=== PATIENT | female | born 1935 | race Two or more races ===

== ENCOUNTER 2019-04-24 20:45 | Inpatient (IN) | payer MEDICARE, OTHER ==
[~2019-04-24] VITALS: Ht 144.8 cm; Wt 73.5 kg
[2019-04-25 01:00] VITALS: BP 139/82
[2019-04-25] MEDS ORDERED: ONDANSETRON HCL/PF 4 MG/2 ML VIAL IVP PRN (01:30)
[2019-04-25] MEDS ORDERED: NITROGLYCERIN 0.4 MG/TAB BOTTLE SL PRN (01:30)
[2019-04-25] MEDS ORDERED: Z GUARD REMEDY 2 OZ OINT TP PRN (01:30)
[2019-04-25] MEDS ORDERED: ZOLPIDEM TARTRATE 5 MG TABLET PO PRN (01:30)
[2019-04-25] MEDS ORDERED: ACETAMINOPHEN 325 MG TABLET PO PRN (01:30)
[2019-04-25] MEDS ORDERED: MAGNESIUM HYDROXIDE 30 ML UDC PO PRN (01:30)
[2019-04-25] MEDS ORDERED: MAG HYDROX/AL HYDROX/SIMETH 30 ML UDC PO PRN (01:30)
[2019-04-25] MEDS ORDERED: HYDROCODONE/APAP 5/325MG 1 EACH TABLET PO PRN (01:30)
[2019-04-25] MEDS ORDERED: MORPHINE SULFATE INJ 2 MG/ML DISP.SYRIN IV PRN (01:30)
[2019-04-25 01:52] LABS: BASOPHILS # (AUTO) 0.2 /CMM (0.0-0.2); BASOPHILS % (AUTO) 2.8 % (0.0-2.0); EOSINOPHILS % (AUTO) 0.3 % (0.0-6.0); HEMATOCRIT 38 % (33-45); HEMOGLOBIN 12.7 g/dL (11.5-14.8); LYMPHOCYTES % (AUTO) 28.9 % (20.0-44.0); MEAN CORPUSCULAR HGB CONC 33 g/dl (31.0-36.0); MEAN CORPUSCULAR VOLUME 97 fL (82-100); MONOCYTES # (AUTO) 0.6 /CMM (0.1-1.30); MONOCYTES % (AUTO) 8.6 % (2.0-12.0); NEUTROPHILS # (AUTO) 4.1 /CMM (1.8-8.9); NEUTROPHILS % (AUTO) 59.4 % (43.0-81.0); PLATELET COUNT (AUTO) 135 /CMM (150-450); RED BLOOD CELL COUNT(AUTO) 3.96 MIL/uL (4.0-5.2); WHITE BLOOD COUNT (AUTO) 6.9 K/uL (4.3-11.0)
[2019-04-25] MEDS ORDERED: CHOL20004 PO (01:53)
[2019-04-25] MEDS ORDERED: METO-358 PO (01:53)
[2019-04-25] MEDS ORDERED: ESOM40CA PO (01:53)
[2019-04-25] MEDS ORDERED: FOLI1TAB16 PO (01:53)
[2019-04-25] MEDS ORDERED: METH2.5T PO (01:53)
[2019-04-25] MEDS ORDERED: CALC-1104 PO (01:53)
[2019-04-25] MEDS ORDERED: EZET10TA14 PO (01:53)
[2019-04-25] MEDS ORDERED: ICOS1CAP PO (01:53)
[2019-04-25] MEDS ORDERED: APIX2.5T PO (01:53)
[2019-04-25] MEDS ORDERED: LORA1TAB PO (01:53)
[2019-04-25] MEDS ORDERED: LEVO100T9 PO (01:53)
[2019-04-25] MEDS ORDERED: LOSA100T31 PO (01:53)
[2019-04-25] MEDS ORDERED: MULT-1168 PO (01:53)
[2019-04-25] MEDS ORDERED: AMLO2.5T4 PO (01:53)
[2019-04-25] MEDS ORDERED: ESCI20TA PO (01:53)
[2019-04-25] MEDS ORDERED: FERR325T23 PO (01:53)
[2019-04-25] MEDS ORDERED: INFL100V IV (01:53)
[2019-04-25] MEDS ORDERED: AMIO200T4 PO (01:53)
[2019-04-25] MEDS ORDERED: DONE5TAB34 PO (01:53)
[2019-04-25 02:11] LABS: CHOLESTEROL 95 mg/dL (<200); HDL CHOLESTEROL 45 mg/dL (40-60); LDL 40 mg/dL (0-99); THYROID STIMULATING HORMONE 4.152 uIU/mL (0.358-3.74); TRIGLYCERIDES 100 mg/dL (30-150)
[2019-04-25 02:22] LABS: ALANINE AMINOTRANSFERASE 62 U/L (12-78); ALBUMIN 3.3 g/dL (3.4-5.0); ALKALINE PHOSPHATASE 56 U/L (46-116); ASPARTATE AMINOTRANSFERASE 40 U/L (15-37); B-TYPE NATRIURETIC PEPTIDE 7516 PG/ML (0-125); BILIRUBIN,TOTAL 0.5 mg/dL (0.2-1.0); CALCIUM, SERUM 8.5 mg/dL (8.5-10.1); CARBON DIOXIDE 25 mmol/L (21-32); CHLORIDE 106 mmol/L (98-107); CREATININE 1.2 mg/dL (0.6-1.3); GLUCOSE 119 mg/dL (74-106); PHOSPHORUS 4.8 mg/dL (2.5-4.9); POTASSIUM 4.2 mmol/L (3.5-5.1); SODIUM SERUM 141 mmol/L (136-145); TOTAL PROTEIN, SERUM 6.4 g/dL (6.4-8.2); UREA NITROGEN, BLOOD 33 mg/dL (7-18)
--- NOTE | 2019-04-25 02:26 | NUR ---
RN NOTE RECEIVED PATIENT FROM [facility], TRANSFERRED VIA GURNEY, ABLE TO AMBULATE WITH ASSIST, ALERT/ORIENTED X 2, PER DAUGHTER PATIENT HAS PERIODS OF CONFUSION AT HOME, DC CHEST PAIN, ON ROOM AIR SO2 96%, NO PAIN OR DISCOMFORT AT THIS TIME, SKIN IS INTACT, RIGHT AC 22 GAUGE, NO S/S OF INFECTION/INFILTRATION NOTED, NO CHEST PAIN OR DISCOMFORT NOTED AT THIS TIME, WILL CONTINUE TO MONITOR PATIENT
[2019-04-25 04:00] VITALS: BP 156/83
--- NOTE | 2019-04-25 07:45 | NUR ---
RN NOTE: PATIENT RECEIVED ALERT AWAKE ORIENTED X 3 WITH PERIODS OF FORGETFULNESS. ON ROOM AIR, NO BREATHING DISTRESS NOTED. DENIES CHEST PAIN & DISCOMFORT. ON TELE MONITOR V-PACING. SAFETY MEASURES OBSERVED. DAUGHTER AT BED SIDE. ENCOURAGE TO USE CALL LIGHT FOR ASSISTANCE. CONTINUE WITH PLAN OF CARE.
[2019-04-25 08:00] VITALS: BP 146/83
[2019-04-25] MEDS: ASPIRIN EC 81 MG TABLET.DR PO SCH (09:02)
--- NOTE | 2019-04-25 11:00 | NUR ---
RN NOTE: MED RECON NOTIFIED JAJA Tapia NP MADE AWARE ABOUT MED RECON NEEDS TO BE DONE, PER JAJA WILL REVIEW IT.
[2019-04-25 12:00] VITALS: BP 130/76
[2019-04-25 16:00] VITALS: BP 134/77
--- NOTE | 2019-04-25 17:00 | NUR ---
RN NOTE; DAUGHTER AT BEDSIDE REQUESTED TO SEE PRIMARY DOCTOR & HOME MEDICATION ADMINISTRATION. JAJA LOVE MADE AWARE.
--- NOTE | 2019-04-25 18:39 | NUR ---
RN NOTE: PATIENT REMAINS ALERT AWAKE ORIENTED X 4. ON ROOM AIR, NO BREATHING DISTRESS NOTED. DENIES CHEST PAIN & DISCOMFORT. ON TELE MONITOR A-FIB WITH V- PACING. NO ANY SIGNIFICANT CHANGES NOTED DURING SHIFT. ECHO WAS DONE TODAY. JAJA LOVE AT BEDSIDE, TALKING TO PATIENT & DAUGHTER.
--- NOTE | 2019-04-25 19:06 | NUR ---
RN NOTE RECEIVED PATIENT IN THE BED, ALERT/ORIENTED X 3, NO CHEST PAIN NOTED, PER NURSE LISET AWAITING FOR MEDICATION RECONCILIATION FROM JAJA ZAVALA PATTERN CHANGER AND REPAIRER, DAUGHTER IS BY BEDSIDE, WILL CONTINUE TO MONITOR
--- NOTE | 2019-04-25 19:30 | NUR ---
RN NOTE PAGED DOCTOR RASHID SR REGARDING MEDICATION RECON., PER DOCTOR RASHID SR HE WILL DO MEDICATION RECON. SOON HE HAS TIME Addendum: 04/25/19 at 2028 by PRINCESS WALKER RN UPHOLSTERY HANDLER MARTHA IS AWARE
[2019-04-25 20:00] VITALS: BP 151/72
--- NOTE | 2019-04-25 22:11 | NUR ---
RN NOTE MEDICATION RECONCILIATION WAS DONE BY YORDAN ZAVALA IPHONE DEVELOPER, NOTIFIED DAUGHTER, CHARGE NURSE NARCISO IS AWARE
[2019-04-26] VITALS: BP 122/72
[2019-04-26 04:00] VITALS: BP 154/81
[2019-04-26 05:58] LABS: BASOPHILS % (AUTO) 0.7 % (0.0-2.0); EOSINOPHILS % (AUTO) 1.1 % (0.0-6.0); HEMATOCRIT 36 % (33-45); HEMOGLOBIN 11.8 g/dL (11.5-14.8); LYMPHOCYTES # (AUTO) 2.2 /CMM (0.8-4.8); LYMPHOCYTES % (AUTO) 39.6 % (20.0-44.0); MEAN CORPUSCULAR HGB CONC 33 g/dl (31.0-36.0); MEAN CORPUSCULAR VOLUME 98 fL (82-100); MONOCYTES # (AUTO) 0.5 /CMM (0.1-1.30); MONOCYTES % (AUTO) 8.7 % (2.0-12.0); NEUTROPHILS # (AUTO) 2.8 /CMM (1.8-8.9); NEUTROPHILS % (AUTO) 49.9 % (43.0-81.0); PLATELET COUNT (AUTO) 126 /CMM (150-450); RED BLOOD CELL COUNT(AUTO) 3.65 MIL/uL (4.0-5.2); WHITE BLOOD COUNT (AUTO) 5.7 K/uL (4.3-11.0)
[2019-04-26 06:15] LABS: CALCIUM, SERUM 7.8 mg/dL (8.5-10.1); CARBON DIOXIDE 25 mmol/L (21-32); CHLORIDE 108 mmol/L (98-107); CREATININE 0.9 mg/dL (0.6-1.3); GLUCOSE 138 mg/dL (74-106); MAGNESIUM 1.8 mg/dL (1.8-2.4); PHOSPHORUS 3.8 mg/dL (2.5-4.9); POTASSIUM 3.7 mmol/L (3.5-5.1); SODIUM SERUM 143 mmol/L (136-145); UREA NITROGEN, BLOOD 23 mg/dL (7-18)
--- NOTE | 2019-04-26 07:45 | NUR ---
ENVIRONMENTAL MONITORING SPECIALIST OPENING NOTE RECEIVED PT SITTING UP IN CHAIR WITH FAMILY MEMBER AT THE BEDSIDE. PT IS ALERT AND ORIENTED X4, PRIMARILY UZBE[place] SPEAKING. DENIES CHEST PAIN, SOB, N/V, BREATHING IS EVEN AND UNLABORED ON ROOM AIR. PT IS ON TIN CAN LABORER WITH A-FIB, HR 105, PT HAS A PACEMAKER THAT IS NOT FIRING AT THIS TIME AND PENDING CARDIAC CONSULT. LEFT AC #22G IV IS SALINE LOCKED WITHOUT REDNESS OR SWELLING. ALL NEEDS ATTENDED TO. BED IS LOCKED AND IN LOWEST POSITION, SIDE RAILS UP X2, CALL LIGHT AND POSSESSIONS WITHIN REACH.
[2019-04-26 08:00] VITALS: BP 177/88
--- NOTE | 2019-04-26 08:15 | NUR ---
CIVIL ENGINEERING PROJECT MANAGER NOTE SPOKE WITH PERLA IN PHARMACY REGARDING ELIQUIS. PER PERLA SHE DOES NOT KNOW WHY THE MEDICATION HAS BEEN LEFT UNVERIFIED, PER PERLA, VERIFY MEDICATION ORDER WITH FAMILY AND REQUEST THAT THEY BRING THE MEDICATION IN.
--- NOTE | 2019-04-26 08:20 | NUR ---
HEAT TREAT FURNACE OPERATOR NOTE VERIFIED THAT PT TAKES ELIQUIS 2.5MG BID. REQUESTED THAT SOMEONE BRING IN THE MEDICATION FOR ADMINISTRATION. INFORMED JAY IN PHARMACY AND ALSO INFORMED THAT FAMILY WILL BRING THE MEDICATION IN LATER TODAY, AND THAT PT HAS A DOSE DUE THIS AM.
[2019-04-26] MEDS: CHOLECALCIFEROL 1,000 UNIT TABLET (VIT D3) PO SCH ×2 (08:55→17:03)
[2019-04-26] MEDS: MULTIPLE VIT (LYCOPENE/FA/MV,CA,IRON,MIN/LUT)1 TAB PO SCH (08:55)
[2019-04-26] MEDS: ESCITALOPRAM OXALATE (10 MG) 10 MG TABLET PO SCH (08:55)
[2019-04-26] MEDS: FERROUS SULFATE (325 MG) 325 MG/TAB TABLET PO SCH ×2 (08:56→17:03)
[2019-04-26] MEDS: LEVOTHYROXINE SODIUM 100 MCG TABLET PO SCH (08:56)
[2019-04-26] MEDS: DONEPEZIL 5 MG TABLET PO SCH (08:56)
[2019-04-26] MEDS: CALCIUM CARB 250MG /VITAMIN D 1 UDTAB PO SCH ×3 (08:56→17:03)
[2019-04-26] MEDS: METOPROLOL SUCCINATE 50 MG TAB.SR.24H PO SCH (08:57)
[2019-04-26] MEDS: FOLIC ACID 1 MG TABLET PO SCH (08:57)
[2019-04-26] MEDS: LOSARTAN POTASSIUM 50 MG TABLET PO SCH (08:57)
[2019-04-26] MEDS: EZETIMIBE 10 MG TABLET PO SCH (08:59)
[2019-04-26] MEDS: ASPIRIN EC 81 MG TABLET.DR PO SCH (08:59)
[2019-04-26] MEDS ORDERED: Medication Not On Formulary EA (Icosapent Ethyl (Vascepa) 1 GM) PO SCH (09:00)
[2019-04-26] MEDS: AMLODIPINE BESYLATE 2.5 MG TABLET PO SCH (09:00)
[2019-04-26] MEDS ORDERED: LORAZEPAM 1 MG TABLET PO SCH (09:00)
[2019-04-26] MEDS: AMIODARONE HCL 200 MG TABLET PO SCH (09:01)
[2019-04-26] MEDS: PANTOPRAZOLE 40 MG TABLET.DR PO SCH (09:02)
[2019-04-26] MEDS: APIXABAN 2.5 MG TABLET PO SCH ×2 (09:18→17:06)
[2019-04-26 11:03] LABS: APPEARANCE,URINE CLEAR (CLEAR); BILIRUBIN,URINE NEGATIVE (NEGATIVE); BLOOD, URINE 1+ Ery/uL (NEGATIVE); COLOR,URINE YELLOW (YELLOW); KETONES,URINE NEGATIVE (NEGATIVE); LEUKOCYTE ESTERASE ,URINE NEGATIVE (NEGATIVE); NITRITE, URINE NEGATIVE (NEGATIVE); PH,URINE 5.5 (5.0-8.0); PROTEIN,URINE TRACE mg/dl (NEGATIVE); UGLUCOSE NEGATIVE (NEGATIVE); UROBILINOGEN,URINE 0.2 EU/dL (0.2)
[2019-04-26 11:05] LABS: BACTERIA,URINE Few /HPF (None Seen); WBC,URINE 0-2 /HPF (0-3)
--- NOTE | 2019-04-26 11:34 | NUR ---
HOSPITAL CHAPLAIN NOTE SPOKE WITH (BUCKLE STRINGER) REGARDING PT CONSULT. PER HE WILL SEE THE PT SHORTLY AND IS REQUESTING PACEMAKER INTERROGATION AT THIS TIME. WILL INITIATE.
--- NOTE | 2019-04-26 11:39 | NUR ---
FRENCH TUTOR NOTE PUT IN REQUEST WITH WEST FROM [employer] FOR DEVICE INTERROGATION REQUESTED BY RAILROAD CAR REPAIR SUPERVISOR. PHONE NUMBER: [phone]. PER WEST SOMEONE WILL SEE THE PT TODAY.
[2019-04-26 12:00] VITALS: BP 146/83
--- NOTE | 2019-04-26 12:37 | NUR ---
ROUTE CLERK NOTE DR. HANSEN AT THE BEDSIDE FOR PT ASSESSMENT
--- NOTE | 2019-04-26 12:45 | NUR ---
BELT SEWER NOTE BLOGS MANAGER FROM [employer] AT THE BEDSIDE FOR PACEMAKER INTERROGATION.
[2019-04-26] MEDS ORDERED: LOPERAMIDE HCL (2 MG CAP) 2 MG CAPSULE PO PRN (15:00)
[2019-04-26 16:00] VITALS: BP 127/77
--- NOTE | 2019-04-26 16:15 | NUR ---
SIGNAL FITTER NOTE INFORMED BY CHARGE NURSE THAT PT WILL BE TRANSFERRED TO OUTSIDE FACILITY FOR CARDIAC CATH, PENDING AUTHORIZATION.
--- NOTE | 2019-04-26 16:17 | NUR ---
VIDEO POKER FLOORMAN NOTE LEFT AC IV FOUND TO BE LEAKING AND UNABLE TO FLUSH. REMOVED WITH CATHETER TIP INTACT. NEW IV INSERTED AT THE RIGHT AC #18G AND IS PATENT, CLEAN, DRY AND INTACT.
--- NOTE | 2019-04-26 18:11 | NUR ---
FUNDING ANALYST CLOSING NOTE PT SITTING UP IN CHAIR WITH FAMILY MEMBER AT THE BEDSIDE. PT IS ALERT AND ORIENTED X4, PRIMARILY FAROESE SPEAKING. DENIES CHEST PAIN, SOB, N/V, BREATHING IS EVEN AND UNLABORED ON ROOM AIR. PT IS ON INSTRUMENTATION CONTROLS ENGINEER WITH A-FIB AND VENTRICULAR PACING, HR 98. RIGHT AC #18G IV IS SALINE LOCKED WITHOUT REDNESS OR SWELLING. ASSISTED WITH ADLS. PT IS PENDING TRANSFER TO OUTSIDE FACILITY FOR CARDIAC CATH. ALL NEEDS ATTENDED TO. BED IS LOCKED AND IN LOWEST POSITION, SIDE RAILS UP X2, CALL LIGHT AND POSSESSIONS WITHIN REACH. WILL ENDORSE TO TECHNICIAN TERMINAL AND REPEATER NURSE FOR CONTINUITY OF CARE.
--- NOTE | 2019-04-26 19:40 | NUR ---
INJECTION MOLDING OPERATOR NOTES, PATIENT SITTING UP IN CHAIR WITH DAUGHTER AT BEDSIDE, ALERT AND ORIENTED X4, SOMALI SPEAKING, BREATHING IS EVEN AND UNLABORED ON ROOM AIR, WITH O2 SAT LEVEL 96% AT T HIS TIME, DENIES CHEST PAIN OR DISCOMFORT AT THIS TIME, AFIB AND VENTRICULAR PACING, HR 80S, RIGHT AC #18G IV S/L NO ABNORMAL SIGNS NOTED, ALL NEEDS ATTENDED, BED IS LOCKED AND IN LOWEST POSITION, SIDE RAILS UP X2, CALL LIGHT WITHIN REACH, WILL CONTINUE TO MONITOR CLOSELY.
[2019-04-26 20:00] VITALS: BP 143/78
[2019-04-26] MEDS ORDERED: LORAZEPAM 1 MG TABLET PO PRN (22:00)
[2019-04-27] VITALS: BP 140/69
[2019-04-27 04:00] VITALS: BP 143/83
--- NOTE | 2019-04-27 06:33 | NUR ---
BUSINESS MANAGEMENT MANAGER NOTES, PATIENT SLEEPING AT THIS TIME, BUT EASILY AROUSABLE TO TACTILE STIMULI, 2 DAUGHTERS AT BEDSIDE, ALERT AND ORIENTED X4, MOLDOVAN SPEAKING, BREATHING IS EVEN AND UNLABORED ON ROOM AIR, WITH OPTIMAL SATURATION LEVEL, DENIES CHEST PAIN OR DISCOMFORT AT THIS TIME, AFIB CONTROL, HR 80S, RIGHT AC #18G IV S/L NO ABNORMAL SIGNS NOTED, ALL NEEDS ATTENDED, NO SIGNIFICANT CHANGE IN CONDITION, THROUGHPUT THE NIGHT, BED IS LOCKED AND IN LOWEST POSITION, SIDE RAILS UP X2, CALL LIGHT WITHIN REACH, WILL ENDORSE CONTINUITY OF CARTE TO ONCOMING NURSE.
--- NOTE | 2019-04-27 06:59 | NUR ---
RN NOTES, PATIENT ASSESSED BY ACUTE DIALYSIS NURSE BILLIE AT THIS TIME, WITH PLAN TO TRANSFER PATIENT TO [facility] FOR HORTICULTURAL WORKER, WILL ENDORSE CONTINUITY OF CARE AND F/U ONCOMING NURSE.
[2019-04-27 07:51] LABS: HEMATOCRIT 37 % (33-45); HEMOGLOBIN 12.4 g/dL (11.5-14.8); LYMPHOCYTES % (AUTO) 48.1 % (20.0-44.0); MEAN CORPUSCULAR HGB CONC 33 g/dl (31.0-36.0); MEAN CORPUSCULAR VOLUME 97 fL (82-100); MONOCYTES % (AUTO) 10.3 % (2.0-12.0); NEUTROPHILS % (AUTO) 40.5 % (43.0-81.0); PLATELET COUNT (AUTO) 117 /CMM (150-450); RED BLOOD CELL COUNT(AUTO) 3.86 MIL/uL (4.0-5.2); WHITE BLOOD COUNT (AUTO) 6.3 K/uL (4.3-11.0)
[2019-04-27 07:52] LABS: BASOPHILS % (AUTO) 0.4 % (0.0-2.0); EOSINOPHILS % (AUTO) 0.7 % (0.0-6.0); MONOCYTES # (AUTO) 0.6 /CMM (0.1-1.30); NEUTROPHILS # (AUTO) 2.5 /CMM (1.8-8.9)
[2019-04-27] MEDS: PANTOPRAZOLE 40 MG TABLET.DR PO SCH (07:59)
[2019-04-27] MEDS: LEVOTHYROXINE SODIUM 100 MCG TABLET PO SCH (07:59)
[2019-04-27 08:00] VITALS: BP 165/87
[2019-04-27] MEDS: APIXABAN 2.5 MG TABLET PO SCH ×2 (08:15→17:06)
[2019-04-27] MEDS: CHOLECALCIFEROL 1,000 UNIT TABLET (VIT D3) PO SCH ×2 (08:16→17:05)
[2019-04-27] MEDS: MULTIPLE VIT (LYCOPENE/FA/MV,CA,IRON,MIN/LUT)1 TAB PO SCH (08:16)
[2019-04-27] MEDS: ESCITALOPRAM OXALATE (10 MG) 10 MG TABLET PO SCH (08:16)
[2019-04-27] MEDS: EZETIMIBE 10 MG TABLET PO SCH (08:16)
[2019-04-27] MEDS: FOLIC ACID 1 MG TABLET PO SCH (08:16)
[2019-04-27] MEDS: FERROUS SULFATE (325 MG) 325 MG/TAB TABLET PO SCH ×2 (08:16→17:05)
[2019-04-27] MEDS: LOSARTAN POTASSIUM 50 MG TABLET PO SCH (08:17)
[2019-04-27] MEDS: AMLODIPINE BESYLATE 2.5 MG TABLET PO SCH (08:18)
[2019-04-27] MEDS: CALCIUM CARB 250MG /VITAMIN D 1 UDTAB PO SCH ×3 (08:18→17:05)
[2019-04-27] MEDS: DONEPEZIL 5 MG TABLET PO SCH (08:18)
[2019-04-27] MEDS: ASPIRIN EC 81 MG TABLET.DR PO SCH (08:18)
[2019-04-27] MEDS: METOPROLOL SUCCINATE 50 MG TAB.SR.24H PO SCH (08:19)
[2019-04-27] MEDS: AMIODARONE HCL 200 MG TABLET PO SCH (08:21)
[2019-04-27 08:50] LABS: CALCIUM, SERUM 8.3 mg/dL (8.5-10.1); CARBON DIOXIDE 27 mmol/L (21-32); CHLORIDE 103 mmol/L (98-107); GLUCOSE 115 mg/dL (74-106); POTASSIUM 4.2 mmol/L (3.5-5.1); SODIUM SERUM 137 mmol/L (136-145); UREA NITROGEN, BLOOD 24 mg/dL (7-18)
[2019-04-27 12:00] VITALS: BP 146/79
[2019-04-27] MEDS ORDERED: BISACODYL SUPP (10 MG) 10 MG/SUPP.RECT SUPP.RECT RC PRN (14:00)
[2019-04-27 16:00] VITALS: BP 114/64
[2019-04-27] MEDS ORDERED: NA PHOS,M-B/NA PHOS,DI-BA 1 EA ENEMA RC PRN (18:30)
--- NOTE | 2019-04-27 19:00 | NUR ---
RN NOTE PT IS ABOUT TO BE TRANSFERRED TO [facility] PAPERWORK IS COMPLETE AND REPORT GIVEN TO EVAN SIM AT THE [facility], PT STABLE, MEDS GIVEN ORDERED, DISCHARGE INSTRUCTIONS PROVIDED TO DAUGHTER MIGUEL ANGEL OVALLES, PAPERS SIGNED BY DAUGHTER. RECORDS ASSISTANT TIME 1929. WILL ENDORSE TO STOREROOM SUPERVISOR NURSE YASMINE.
--- NOTE | 2019-04-27 19:20 | NUR ---
CHEF & OWNER OPENING NOTES PATIENT IN BED. FAMILY AT BEDSIDE, ALERT AND ORIENTED X3, SLOVENIAN SPEAKING, BREATHING IS EVEN AND UNLABORED ON ROOM AIR, DENIES CHEST PAIN OR DISCOMFORT AT THIS TIME, AFIB CONTROL, HR 80S, RIGHT AC #18G IV S/L NO ABNORMAL SIGNS NOTED, BED IS LOCKED AND IN LOWEST POSITION, SIDE RAILS UP X2, CALL LIGHT WITHIN REACH, WILL CONT TO MONITOR PT. PER ULISES OLIVO RN, PATIENT WILL BE TRANSFERRED TO [facility] FOR PROJECT STRUCTURAL ENGINEER, AMBULANCE ETA AT 1930. ALSO PER AM RN, EXIT CARE/DISCHARGE PROCESS DONE AND RECORDED.
--- NOTE | 2019-04-27 19:45 | NUR ---
COLLECTIONS AND ARCHIVES DIRECTOR NOTES PATIENT STABLE. GAVE PT REPORT TO AMBULANCE PERSONNEL FOR TITI. PT LEFT THE UNIT WITH FAMILY AND AMBULANCE PERSONNEL [facility] TELE BOX REMOVED.
[2019-05-01] MEDS ORDERED: METHOTREXATE SODIUM (2.5MG) 2.5 MG TABLET PO SCH (09:00)
== END 2019-04-27 20:15 | disposition short-term general hospital (02) | DRG 392 ==
LOC: TELE 04-25 00:19 → TELE1 04-25 00:48
PROVIDERS: ADMIT Registered Nurse; ATTEND Nurse Practitioner Acute Care
DX: K29.70 Gastritis, unspecified, without bleeding (principal); I42.9 Cardiomyopathy, unspecified; I50.32 Chronic diastolic (congestive) heart failure; D69.6 Thrombocytopenia, unspecified; E03.9 Hypothyroidism, unspecified; E11.9 Type 2 diabetes mellitus without complications; D50.9 Iron deficiency anemia, unspecified; I11.0 Hypertensive heart disease with heart failure; E78.5 Hyperlipidemia, unspecified; E78.1 Pure hyperglyceridemia; E66.01 Morbid (severe) obesity due to excess calories; F32.9 Major depressive disorder, single episode, unspecified; F41.9 Anxiety disorder, unspecified; I48.91 Unspecified atrial fibrillation; Z95.0 Presence of cardiac pacemaker; M06.9 Rheumatoid arthritis, unspecified; Z68.35 Body mass index [BMI] 35.0-35.9, adult; I08.3 Combined rheumatic disorders of mitral, aortic and tricuspid valves; Z79.01 Long term (current) use of anticoagulants; E86.0 Dehydration
CPT/HCPCS: 36415; 71045-TC; 74018; 80048-TC; 80053-TC; 80061-TC; 81000-TC; 83735-TC; 83880; 84100-TC; 84443-TC; 84484-TC; 85025-TC; 87081-TC; 87400; 93307-TC; G0378